=== PATIENT | male | born 1980 | race Caucasian/White ===

== ENCOUNTER 2020-05-09 16:48 | Emergency (ER) | payer SELFPAY ==
--- NOTE | 2020-05-09 17:29 | XRay Report ---
LEFT FINGER, 3 VIEWS INDICATION / CLINICAL INFORMATION: Trauma, pain lt middle finger. COMPARISON: None available. FINDINGS: There is significant soft tissue trauma/defect to the tip of the middle finger. There has been avulsi on fracture of the phalangeal tuft. No radiopaque foreign object is identified. No significant displa cement at the fracture site. IMPRESSION: Avulsion fracture of the phalangeal tuft from the distal phalanx. Avulsed fracture fragme nt is approximately 5 mm. Prominent soft tissue trauma/defect. Signer Name: Hoa Guerrero MD Signed: 05/09/2020 5:25 PM Workstation Name: [id number]
[2020-05-09] MEDS ORDERED: LIDOCAINE (2%) 20 MG/1 ML VIAL 20 ML MDV INFILTRATI ONE (22:22)
[2020-05-09] MEDS ORDERED: DIPHtheria,PERTUSSIS(ACELL),TETANUS VACCINE/PF 0.5 ML VIAL IM ONE (22:33)
--- NOTE | 2020-05-09 22:33 | Emergency Department Report ---
ED Upper Extremity Inj HPI - General Chief Complaint: Extremity Injury, Upper Stated Complaint: FINGER LAC Time Seen by Provider: 05/09/20 21:42 Source: patient Mode of arrival: Ambulatory Limitations: No Limitations - History of Present Illness Initial Comments: 39-year-old male accidentally cut left finger with a knife resulting in laceration. And bleeding presents emergency department seeking further evaluation and treatment MD Complaint: Injury to:: left, finger -: Sudden Other Extremity Injury: Fingers: Left Handedness: right Place: home Improves With: none Worsens With: movement of extremity Context: laceration, injury Associated Symptoms: denies other symptoms. denies: weakness, numbness, suspects foreign body, heard/felt popping sensat - Related Data Previous Rx's Medication Instructions Recorded Last Taken Type Acetaminophen/Codeine [Tylenol 1 tab PO Q6H PRN #14 tab 05/09/20 Unknown Rx /Codeine # 3 tab] Cefdinir 300 mg PO BID #20 capsule 05/09/20 Unknown Rx Allergies Allergy/AdvReac Type Severity Reaction Status Date / Time No Known Allergies Allergy Unverified 05/09/20 16:52 ED Review of Systems ROS: Stated complaint: FINGER LAC Other details as noted in HPI Comment: All other systems reviewed and negative ED Past Medical Hx - Past Medical History Previous Medical History?: No - Surgical History Past Surgical History?: No - Medications Home Medications: Home Medications Medication Instructions Recorded Confirmed Last Taken Type Acetaminophen/Codeine [Tylenol 1 tab PO Q6H PRN #14 tab 05/09/20 Unknown Rx /Codeine # 3 tab] Cefdinir 300 mg PO BID #20 capsule 05/09/20 Unknown Rx ED Physical Exam - General Limitations: No Limitations General appearance: alert, in no apparent distress - Head Head exam: Present: atraumatic, normocephalic - Eye Eye exam: Present: normal appearance - ENT ENT exam: Present: mucous membranes moist - Neck Neck exam: Present: normal inspection - Respiratory Respiratory exam: Present: normal lung sounds bilaterally. Absent: respiratory distress - Cardiovascular Cardiovascular Exam: Present: regular rate, normal rhythm. Absent: systolic murmur, diastolic murmur, rubs, gallop - GI/Abdominal GI/Abdominal exam: Present: soft, normal bowel sounds - Rectal Rectal exam: Present: deferred - Extremities Exam Extremities exam: Present: normal inspection, tenderness - Expanded Upper Extremity Exam Left Hand Wrist exam: Present: tenderness, laceration. Absent: swelling, deformity, crepidus, erythema, amputation, nail avulsion, subungual hematoma Hand L/R Back: 1 - Laceration bleeding partial fingertip avulsion - Back Exam Back exam: Present: normal inspection - Neurological Exam Neurological exam: Present: alert, oriented X3 - Psychiatric Psychiatric exam: Present: normal affect, normal mood - Skin Skin exam: Present: warm, dry, intact, normal color. Absent: rash ED Course Vital Signs 05/09/20 16:56 Temperature 99.2 F Pulse Rate 63 Respiratory 20 Rate Blood Pressure 139/82 O2 Sat by Pulse 98 Oximetry - Procedure Description Procedures done: Area prepped and draped in sterile fashion anesthesia achieved with 2% lidocaine with no epinephrine. 3-0 Prolene placed in simple interrupted fashion x3 Critical care attestation.: If time is entered above; I have spent that time in minutes in the direct care of this critically ill patient, excluding procedure time. ED Disposition Clinical Impression: Finger laceration, Open fracture of tuft of distal phalanx of finger Disposition: DC-01 TO HOME OR SELFCARE Is pt being admited?: No Does the pt Need Aspirin: No Condition: Stable Instructions: Finger Fracture (ED), Suture Care (ED) Additional Instructions: Please follow-up of possible suture removal and 7 days clean wound clean clean with antibacterial soap and water daily Prescriptions: Cefdinir 300 mg PO BID #20 capsule Acetaminophen/Codeine [Tylenol /Codeine # 3 tab] 1 tab PO Q6H PRN #14 tab PRN Reason: Pain , Severe (7-10) Referrals: PRIMARY CARE, [Primary Care Provider] - 3-5 Days [facility] [Provider Group] - 3-5 Days
[2020-05-10 00:48] VITALS: BP 120/84
== END 2020-05-09 23:36 | disposition home or self-care (01) ==
LOC: ED 16:48
DX: S62.631B Displaced fracture of distal phalanx of left index finger, initial encounter for open fracture (principal); S61.211A Laceration without foreign body of left index finger without damage to nail, initial encounter; X58.XXXA Exposure to other specified factors, initial encounter; Y93.89 Activity, other specified; Y92.89 Other specified places as the place of occurrence of the external cause; Y99.8 Other external cause status
CPT/HCPCS: 29130; 73140; 90471; 90715; 96365; 99283; J0690